=== PATIENT | female | born 1995 | race Hispanic/Latino ===

== ENCOUNTER 2017-01-21 14:27 | Day surgery (SDC) | payer OTHER ==
[2017-01-21] MEDS ORDERED: Lactated Ringer's 1,000 ML IV SCH ×2 (15:00)
[2017-01-21 15:12] VITALS: BMI 48.9
--- NOTE | 2017-01-21 15:33 | PDOC.LDHP ---
Labor and Delivery H&P Chief complaint: other (oligohydramnios by clinical US) Dating criteria: first trimester ultrasound (7 week 4 day US due to unsure LMP) Grav: 2 Para: 1 Current complications: oligohydramnios Abnormal US findings: Yes (ZACHARY 4cm) Past Medical History: PMHx- Obesity PSHx- LTCS x 1 for failed IOL Family Hx- none Current medications: pre- vitamins Previous surgical history: low tranverse CS Social history: none - Physical Exam Vital signs reviewed and normal: yes General: NAD, resting Heart: RRR Lungs: nonlabored breathing Abdomen: gravid Extremeties: no edema FHT: category 1 - OB Labs 1 hour GCT: negative GBS: negative - Assessment @ 37.2 by 7.4wk US presents for- 1) Oligohdyramnios- IV placement and bolus 2L IVF and push po fluids. no h/o LOF , discharge, VB. After IVF, will check repeat ZACHARY with BPP. NST currently showing active fetus with cat I strip and few ctx (not felt by pt). Will also check umbilical artery dopplers. If ZACHARY nml, reassuring status, will await IOL vs. RLTCS; however, if abnormal component, will consider IOL/RLTCS today/tomorrow. Pending Records from [facility] for IOB labs. 2) h/o x 1- undecided regarding delivery plan 3) h/o preE w/o severe features- declined asa ppx but normal BPs throughout . 4) obesity The plan was discussed with the attending, Dr. Sofia Sawant, who agrees with the above. - Plan Plan: observation in L&D <Shanon Gerber - Last Filed: 01/21/17 15:39> <Sofia Sawant - Last Filed: 01/22/17 13:18> Allergies/Adverse Reactions: Allergies Allergy/AdvReac Type Severity Reaction Status Date / Time No Known Allergies Allergy Verified 05/29/14 02:22 Attending Addendum - Attending Addendum I personally evaluated the patient and discussed the management with Dr. Gerber I agree with the History, Examination, Assessment and Plan documented above with any addition or exceptions noted below. Seda <Sofia Sawant - Last Filed: 01/22/17 13:18>
--- NOTE | 2017-01-21 20:55 | ULT ---
LIMITED OB ULTRASOUND AND BIOPHYSICAL PROFILE WELL ARTERIAL DOPPLER ULTRASOUND EVALUATION 01/21/17 Multiple longitudinal and transverse images of an intrauterine is obtained using a multihe rtz curvilinear transducer. Real time, color flow, and spectral waveform doppler analysis used to ev aluate the fetus. Images demonstrate a viable intrauterine with the fetus in cephalic presentation. The plac enta is anterior and grade II. Amniotic fluid index measures 10.6 cm. Cardiac activity measures 124 beats per minute. anatomi c evaluation demonstrates a four chamber heart, stomach, cord insertion, diaphragm and bladder. The rest of the anatomy is suboptimally visualized due to position. Umbilical arterial measurements are as follows: Three separate measurements were made. Measurement #1 measures 2.08, measurement #2 measures 2.30 and measurement #3 is 2.43 (systolic over diastolic). BIOPHYSICAL PROFILE: tone = 2 breathing = 2 movement = 2 Amniotic fluid volume = 2 Composite = 8 out of 8. IMPRESSION: Viable IUP. Biophysical profile measures 8 out of 8. POS: [facility]
== END 2017-01-21 19:25 | disposition home or self-care (01) ==
LOC: L&D/OP 14:27
PROVIDERS: ATTEND Student in an Organized Health Care Education/Training Program
DX: O41.03X0 Oligohydramnios, third trimester, not applicable or unspecified (principal); O99.213 Obesity complicating pregnancy, third trimester; E66.9 Obesity, unspecified; Z68.42 Body mass index [BMI] 45.0-49.9, adult; Z79.899 Other long term (current) drug therapy; Z3A.37 37 weeks gestation of pregnancy; Z98.891 History of uterine scar from previous surgery; Z87.59 Personal history of other complications of pregnancy, childbirth and the puerperium
CPT/HCPCS: 76815; 76819; 96360; 96361

== ENCOUNTER 2017-01-31 03:16 | Inpatient (IN) | payer MEDICAID, OTHER, SELFPAY ==
[2017-01-31 03:47] VITALS: BMI 48.2
[2017-01-31] MEDS ORDERED: Acetaminophen 500 MG TAB PO PRN (03:53)
[2017-01-31] MEDS ORDERED: Promethazine HCl 25 MG/ML VIAL IM PRN ×2 (03:53→06:00)
[2017-01-31] MEDS ORDERED: Lidocaine 1% (PF) 30 ML VIAL SC PRN (03:53)
[2017-01-31] MEDS ORDERED: LR / Pitocin 40 units/1000 ml 1,000 ML IV PRN (03:53)
[2017-01-31] MEDS ORDERED: Ondansetron HCl/PF 4 MG/2 ML Vial IVP PRN ×2 (03:53→06:00)
[2017-01-31] MEDS ORDERED: Ibuprofen 800 MG TAB PO PRN (03:53)
[2017-01-31] MEDS: Lactated Ringer's 1,000 ML IV SCH ×2 (04:00→16:09)
[2017-01-31 05:07] LABS: Hematocrit 41.2 % (36.0-47.0); Mean Platelet Volume 7.2 fL (7.4-10.4); Red Blood Cell (RBC) Count 5.26 mill/uL (4.20-5.40); White Blood Cell (WBC) Count 11.1 thou/uL (4.8-10.8)
[2017-01-31] MEDS ORDERED: Fentanyl 4 mcg/Marc 0.1% Cadd 100 ML ONE (05:08)
[2017-01-31] MEDS ORDERED: Lactated Ringer's 500 ML IV PRN (06:00)
[2017-01-31] MEDS ORDERED: Eucerin (Mineral Oil/Petrolatum,White) 30 gm Jar TOP PRN (06:00)
[2017-01-31] MEDS ORDERED: ePHEDrine/0.9% NaCl/PF SYRINGE 50 mg/10 ml SLOW IVP PRN (06:00)
[2017-01-31] MEDS ORDERED: Acetaminophen 325 MG TAB PO PRN (06:00)
[2017-01-31] MEDS ORDERED: Naloxone HCl 0.4 mg/ml Vial IVP PRN ×2 (06:00)
[2017-01-31] MEDS ORDERED: diphenhydrAMINE 50 MG/ML VIAL IVP PRN (06:00)
[2017-01-31] MEDS ORDERED: Fentanyl 4mcg/Marcaine 0.1% Cassette 100 ML EPIDURAL SCH (06:00)
[2017-01-31] MEDS ORDERED: Communication Order-Pharmacy FS SCH (06:00)
--- NOTE | 2017-01-31 07:13 | PDOC.LDPN ---
Labor & Delivery Progress Note - Subjective Subjective: comfortable, loss of fluid (Initially came in for SROM) - Objective Vital signs reviewed and normal: yes General: NAD, resting, breathing through contractions Uterine fundus: non tender Dilation: 4 Effacement: 75% Station: -2 FHT: category 2, early decelerations, variable decelerations, variability present (moderate) [place] contractions every: 2 Procedures: epidural placed Plan: continue plan of care -: Labor check due at 0830 <Milagros Hancock - Last Filed: 01/31/17 07:11> Attending Addendum - Attending Addendum I personally evaluated the patient and discussed the management with Dr. Gerber. I agree with the History, Examination, Assessment and Plan documented above with any addition or exceptions noted below. <Noah Courtney - Last Filed: 01/31/17 12:58>
[2017-01-31] MEDS ORDERED: FLU VACC QS2017-18 36 mo. & older 0.5 ML SYRINGE IM ONE (09:00)
[2017-01-31] MEDS ORDERED: Lidocaine 1% (PF) 30 ML VIAL ONE (11:39)
[2017-01-31] MEDS ORDERED: Misoprostol 200 MCG TAB ONE (11:53)
[2017-01-31] MEDS ORDERED: Acetaminophen 1,000 MG in Premix Bag 1 BAG IVPB SCH (12:15)
[2017-01-31] MEDS ORDERED: Misoprostol 200 MCG TAB VAG SCH (12:30)
[2017-01-31] MEDS ORDERED: Gentamicin 80 MG/2 ML VIAL IVPB SCH (12:30)
[2017-01-31 13:08] LABS: Hematocrit 32.2 % (36.0-47.0); Mean Platelet Volume 6.8 fL (7.4-10.4); Red Blood Cell (RBC) Count 4.04 mill/uL (4.20-5.40); White Blood Cell (WBC) Count 25.3 thou/uL (4.8-10.8)
[2017-01-31 13:13] LABS: Bilirubin Small (Negative); Blood, Urine Large (Negative); Glucose, Urine (Dipstick) Negative (Negative); Ketone, Urine Negative (Negative); Nitrite Negative (Negative); Protein, Urine (Dipstick) Trace mg/dL (Neg-Trace); Urobilinogen 0.2 mg/dL (0.2-1.0)
[2017-01-31 13:16] LABS: Bacteria/HPF None Seen HPF (None Seen); RBC/HPF GREATER THAN 50-TNTC HPF (0-3)
[2017-01-31 13:27] LABS: Hyaline Casts/LPF 0-3 HYALINE CAST LPF (0-3 Hyaline); Renal Epithelial None Seen HPF (0-3); Transitional Epithelial 0-3 HPF (0-3)
[2017-01-31] MEDS ORDERED: Ampicillin 2 GM, Syringe 5.2 ML in Sterile Water 14.8 ML SLOW IVP SCH ×2 (13:30→22:00)
[2017-01-31] MEDS ORDERED: Ketorolac Tromethamine 30 MG/ML VIAL IVP SCH (13:30)
[2017-01-31] MEDS ORDERED: ISOVUE-370 76%-LOCM 1 ML ONE (13:34)
[2017-01-31 13:39] LABS: Band 16 % (5-11); Hypochromia SLIGHT = 6-15 cells (100X) (0-5/hpf); Microcytosis SLIGHT = 6-15 cells (100X) (0-5/hpf); Neutrophil 70 % (42-75); Polychromasia SLIGHT = 2-3 cells (100X) (0-2/hpf)
[2017-01-31] MEDS: Gentamicin Sulfate 340 MG in Sodium Chloride 0.9% 100 ML IVPB SCH (14:24)
[2017-01-31] MEDS ORDERED: Preparation H Ointment 28 GM TUBE PR PRN (15:12)
[2017-01-31] MEDS ORDERED: Adacel (T-DAP) 0.5 ML VIAL IM ONE (15:12)
[2017-01-31] MEDS ORDERED: Benzocaine/Menthol 20-0.5% 60 ML CAN TOP PRN (15:12)
[2017-01-31] MEDS ORDERED: Bisacodyl 10 MG SUPP PR PRN (15:12)
[2017-01-31] MEDS ORDERED: Lanolin Ointment 7 GM TUBE TOP PRN (15:12)
[2017-01-31] MEDS ORDERED: diphenhydrAMINE 25 MG CAP PO PRN (15:12)
[2017-01-31] MEDS ORDERED: Milk Of Magnesia 30 ML UDCUP PO PRN (15:12)
[2017-01-31] MEDS ORDERED: Lactated Ringer's 1,000 ML IV SCH ×2 (15:15→19:23)
--- NOTE | 2017-01-31 15:24 | PDOC.OPDEL ---
OB Operative/Delivery Note Delivery Dr/Surgeon: Dr. Santi Ortiz & Dr. Gerber, with Dr. Powers Attending Pre-Delivery Diagnosis: active labor Procedure/Post Delivery Dx: vaginal delivery after CS Weeks gestation: 38 Anesthesia: epidural (and local for repair) - Findings A Sex: female Weight: 3.515 kg - 1 min: 9 - 5 min: 9 - Additional Findings/Plan Placenta delivered: spontaneous Repaired Obstetrical Laceration: 2nd degree (2nd degree perineal & 1st degree non-hemostatic left labial & right periurethral) Estimated blood loss: 500 Compilations/Other Findings: 800mcg rectal cytotec placed for PPH prophylaxis Post delivery plan: routine recovery <Shanon Gerber - Last Filed: 01/31/17 15:22> Operative Note - Operative Note Operative Note: Procedure in detail Pre-op Diagnosis: 1. Term intrauterine in labor 2. prior x 1 for arrest of dilation 3. obesity 4. desire for TOLAC 5. preE in prior at 39 wk Post-op Diagnosis: 1. Term intrauterine , delivered 2. successful 3. prior x 1 for arrest of dilation 4. obesity 5. preE in prior at 39 wk Indications: A 21 y/o female presents in latent labor at 3/80/-2 after spontaneous rupture of membranes at approximately 2:30am the morning of arrival. Delivery Note: This is a 21 yo F , now @ 38wks 5 days who delivered a viable female infant at 10:39 am on 01/31/2017. Following an uneventful antepartum course, a vigorous female was delivered over a lacerated perineum in the occipitoanterior position. Anterior Shoulder and then remainder of the body delivered. Loose nuchal cord x 1. The head was held down and mouth and nares were bulb suctioned. Cord clamped and cut and cord blood collected. Placenta delivered intact with a 3 vessel cord noted and sent to pathology given maternal temperature of 102.3F upon delivery. Fundal massage was performed and the fundus was firm. The cervix and vagina were inspected and found to have multiple lacerations including a 2nd degree perineal laceration, repaired with 2-0 vicryl suture on a [address]-1 needle in the usual fashion with good approximation and hemostasis, as well as a non-hemostatic 1st degree laceration at the right periurethral location and a macerated 1st degree left vaginal side wall non-hemostatic laceration both repaired with 2-0 vicryl suture on an SH needle. 5ml of local anesthetic was injected at site of perineal repair. Infant went to nursery in good condition for routine care with blood culture and CBC, as well as prophylactic ampicillin and gentamicin given maternal chorioamnionitis. Apgars were 9&9 at 1 & 5 minutes, respectively. Patient tolerated delivery well and went to after routine recovery/care. The attending, Dr. Powers, was present throughout the delivery. <Shanon Gerber - Last Filed: 01/31/17 15:22> Attending Addendum - Attending Addendum I personally evaluated the patient, was present for and supervised the entire procedure by Drs. Hancock/Buzz I agree with the description of procedure as documented above without any addition or exceptions. <Nimesh Powers - Last Filed: 02/08/17 16:58>
[2017-01-31] MEDS: Ferrous Sulfate 325 MG TAB PO SCH (16:35)
[2017-01-31 17:29] LABS: #Lymphocytes 3.3 thou/uL (1.20-3.40); #Monocytes 0.8 thou/uL (0.11-0.59); #Neutrophils 13.4 thou/uL (1.40-6.50); %Basophils 0.1 % (0.0-1.0); %Eosinophils 0.1 % (0.0-10.0); %Lymphocytes 18.9 % (21.0-51.0); %Monocytes 4.6 % (0.0-10.0); Mean Platelet Volume 6.7 fL (7.4-10.4); White Blood Cell (WBC) Count 17.6 thou/uL (4.8-10.8)
[2017-01-31] MEDS ORDERED: Sodium Chloride 0.9% 10 ML ONE (17:41)
[2017-01-31 17:46] LABS: Lactic Acid - Sepsis 1.4 mmol/L (0.5-2.2)
[2017-01-31 17:51] LABS: ALT (SGPT) Less than 7 U/L (8-55); AST (SGOT) 16 U/L (5-34); Alkaline Phosphatase 116 U/L (40-150); Anion Gap 13 mmol/L (10-20); BUN (Urea Nitrogen) 10 mg/dL (7.0-18.7); Bilirubin, Total 0.5 mg/dL (0.2-1.2); Calc. Creatinine Clearance 237 mL/min (70-130); Calcium 8.1 mg/dL (7.8-10.44); Carbon Dioxide 19 mmol/L (22-29); Chloride 104 mmol/L (98-107); Estimated GFR-MDRD Greater than 90; Globulin 2.6 g/dL (2.4-3.5); Protein, Total 4.9 g/dL (6.0-8.3)
[2017-01-31] MEDS ORDERED: Ampicillin 2 GM in Sodium Chloride 0.9% 100 ML IVPB SCH (18:00)
[2017-01-31] MEDS: Morphine 10 MG/ML VIAL SLOW IVP PRN ×2 (18:20→23:02)
--- NOTE | 2017-01-31 19:34 | PDOC.PP ---
Post Progress Note Post Day #: 0 Subjective: pt c/o lower abd pain, especially LLQ. minimal bleeding. afebrile after ofirmev IV. on abx currently. PO intake tolerated: no Ambulation: no Vital Signs (12 hours) Temp Pulse Resp BP Pulse Ox 01/31/17 18:20 98.2 F 113 H 18 112/62 98 01/31/17 17:10 98.9 F 104 H 20 107/60 01/31/17 16:23 98.6 F 104 H 18 01/31/17 16:22 104 H 18 111/60 01/31/17 14:45 98.1 F 119 H 18 105/56 L 97 01/31/17 08:00 98.4 F 90 18 Weight Weight 101.151 kg - Physical Examination Deviation from normal: no distress at rest Deviation from normal: mildly tachycardic to 105 Respiratory: non-labored breathing Deviation from normal: fundus exquisitly ttp with mild diffuse abd pain, mild guarding, no rebound Fundus firm & at: firm fundus, appropriate lochia Psychiatric: A&Ox3, normal affect Result Diagrams: 01/31/17 17:19 01/31/17 17:19 Additional Labs: Post Labs Blood Type O POSITIVE 01/31/17 04:30 Hep Bs Antigen Non-Reactive S/CO (NonReactive) 01/31/17 04:30 (1) Chorioamnionitis, delivered, current hospitalization Code(s): O41.1290 - CHORIOAMNIONITIS, UNSP TRIMESTER, NOT APPLICABLE OR UNSP Status: Acute (2) Vaginal delivery Code(s): O80 - ENCOUNTER FOR FULL-TERM UNCOMPLICATED DELIVERY Status: Acute (3) Anemia complicating Code(s): O99.019 - ANEMIA COMPLICATING , UNSPECIFIED TRIMESTER Status : Acute (4) Maternal fever during labor, antepartum Code(s): O75.2 - PYREXIA DURING LABOR, NOT ELSEWHERE CLASSIFIED Status: Acute - Assessment/Plan CT of abd shows increase in merry-uterine heterogenous fluid but no free air or clear free fluid, no clear uterine rupture. 1) Acute abdominal pain, - given pt's status, concern for small uterine rupture. H&H has dropped, but appears appropriate after EBL at delivery. No excessive uterine bleeding. Mildly tachycardic, but has chorio. BP nml. Additionally, pt dx'ed with chorioamnionitis at delivery and concern for endometritis. Continue IVF, Amp & Gent for abx and pain control. Will order Abd US to re-eval for free fluid/ hematoma. Appears clinically stable at this time. Consult placed for OB laborist offender job retention specialist, Dr. Hernandez, who has assessed the pt as well.
--- NOTE | 2017-01-31 19:37 | CT ---
ABDOMEN AND PELVIC CT WITH CONTRAST 01/31/17 INDICATION: Acute abdominal pain with history of peripartum state. FINDINGS: There is marked enlargement and heterogeneity of the uterus with a prominent degree of surrounding f luid which is greater than typical for simple fluid. There is an indwelling Gurrola catheter and the u nopacified urinary bladder is compressed by the enlarged uterus. There is prominent volume of the lo w density endometrium. No hydronephrosis involving the kidneys. Adrenal glands are unremarkable. The re is no peripancreatic inflammation. Mild perisplenic and perihepatic free fluid is seen. No dissem inated free air. Mild volume loss is seen at the lung bases. Osseous structures are intact. IMPRESSION: Marked enlargement and heterogeneity of the uterus with surrounding free fluid greater than typical density for simple fluid. Findings may relate, at least in part to the peripartum state although com ponent of underlying inflammatory process and/or hemorrhagic process cannot be excluded, particularl y in light of the moderate volume of surrounding free fluid. Recommend clinical correlation in this regard and close clinical assessment. As necessary, imaging followup may also be obtained to evaluat e progression of findings. Code T POS: [facility]
[2017-01-31] MEDS ORDERED: Ketorolac Tromethamine 30 MG/ML VIAL IVP PRN (20:06)
[2017-01-31] MEDS: Sodium Chloride 0.9% 1,000 ML IV SCH (20:09)
[2017-01-31 20:57] LABS: Hematocrit 24.6 % (36.0-47.0)
[2017-01-31] MEDS ORDERED: Docusate Calcium (SURFAK) 240 MG CAP PO SCH (21:00)
--- NOTE | 2017-01-31 21:19 | ULT ---
LIMITED ABDOMINAL ULTRASOUND 01/31/17 HISTORY: Evaluate for free fluid, recent vaginal delivery. TECHNIQUE: Multiplanar waite scale sonographic imaging of the abdomen/pelvis obtained to evaluate for free fluid . FINDINGS: The uterus is visualized, poorly assessed on ultrasound. The uterus is markedly heterogeneous and en larged, consistent with the patient's history of recent delivery. Evaluation for free fluid is much better performed via CT, which was also performed on 01/31/17. CT exam demonstrates free fluid in the bilateral hemipelves and pubic symphysis. The ultrasound demonstrates free fluid in the left lower quadrant. Please refer to the CT examination for further assessment. IMPRESSION: Free fluid noted in the left lower quadrant, underestimated on ultrasound. Heterogeneity of the uter us, not well assessed on this exam. POS: [facility]
--- NOTE | 2017-01-31 21:19 | PRG ---
DATE OF SERVICE: 01/31/2017 FOLLOWUP ABDOMINAL ULTRASOUND In brief, I have just discussed the ultrasound with Chelsey, the product technician. There is no gross evidence of hematoma and the scar area looks to be intact. There is a small amount of peritoneal fluid, but nothing that looks like an organized hematoma or free fluid in the abdomen. Because of this ultrasound, which is reassuring, we will simply continue to follow.
[2017-01-31] MEDS ORDERED: Ibuprofen 100 MG/5 ML UDCUP PO PRN (22:49)
[2017-01-31] MEDS: Ampicillin 2 GM, Syringe 5.2 ML in Sterile Water 14.8 ML SLOW IVP SCH (23:46)
--- NOTE | 2017-01-31 23:54 | CON ---
DATE OF CONSULTATION: 01/31/2017 The patient was examined at 1915 hours, it is now 1938 hours. LOCATION: in room #333. REQUESTING PHYSICIAN: [facility]/Dr. Shanon Gerber. REASON FOR CONSULTATION: Assessment of uterine integrity after successful . HISTORY OF PRESENT ILLNESS: In brief, I was asked by Dr. Shanon Gerber to evaluate this patient at t he bedside to assess whether her abdomen met surgical criteria. It is important to note that this p atient is a G2, P1, status post , who had a successful at around 10:30 this morning. After delivery, she was also diagnosed with metritis with a temperature of 102 and she is currently receiving IV fluids and antibiotics. Due to the patient's increased abdominal discomfort more than what was deemed normal, I was asked to evaluate. We did obtain a CT scan prior to my ass essment of the patient and the CT scan showed evidence of septic thrombophlebitis, big loculated flu id collection, or overt uterine abnormality. There was some concern about \\\\"free fluid\\\\" noted ar ound the uterus, but this was not otherwise specified. I did review the images myself along with Dr Clyde Gerber. I evaluated the patient at the bedside. PHYSICAL EXAMINATION: VITAL SIGNS: Blood pressure is 120s/70s, pulse is in the 100s-110s. GENERAL: She is in no acute distress. ABDOMEN: Soft with no rebound and no guarding. She did have some pain on deep palpation on the rig ht, but this was not felt to be reflective of a surgical abdomen by me. There was no overt vaginal bleeding. NEUROLOGIC: The patient was alert and oriented and was able to communicate freely. LABORATORY DATA: Her hematocrit value was 27 at last check. ASSESSMENT AND PLAN: 1. This is a patient status post successful vaginal after , now with metritis being t reated with antibiotics with a request from [employer]PERATOR to assess for uterine integrity. Patient has ove rt uterine rupture now and her slight tachycardia could be from her febrile process. I have asked f or a transabdominal ultrasound to make sure that there is no evidence of loculated fluid collection that may help add more clarity to the CT images. Her abdomen is nonsurgical at this time. I have a lso asked to keep her n.p.o. for now. 2. I have asked to place a Gurrola for now. 3. I have asked to get serial H\\T\\H's for now. 4. We will type and cross as well. 5. For now, we will continue to follow as there is no overt evidence of hemodynamic compromise or o vert evidence of rupture at this time.
[2017-02-01 01:42] LABS: Hematocrit 22.8 % (36.0-47.0)
--- NOTE | 2017-02-01 01:59 | PDOC.EVN ---
Event Note - Event Note Event Note: Pt seen and examined at bedside. Denies lightheadedness, dizziness, sob, cp. Reports passing flatus w/ mild relief of symptoms; however, is tachycardic and last bp down form prior. Repeat H/H w/ platelts showed Hgb of 7.5. Abdominal exam remains unchanged from baseline exam, no rebound guarding or rigidity. We will transfuse 1 U PRBCs and repeat an h/h at 1000. Continue IVF.
[2017-02-01] MEDS: Hydrocodone-Acetamin 15 ML UDCUP PO PRN ×2 (02:57→09:35)
[2017-02-01] MEDS: Sodium Chloride 0.9% 1,000 ML IV SCH ×4 (04:04→22:24)
[2017-02-01] MEDS: Ampicillin 2 GM, Syringe 5.2 ML in Sterile Water 14.8 ML SLOW IVP SCH ×3 (06:03→18:38)
--- NOTE | 2017-02-01 08:03 | PDOC.EVN ---
Event Note - Event Note Event Note: Pt re-evaluated this morning. States she was at a 10/10 regarding pain and discomfort upon eval yesterday afternoon, but feels like a 5/10 this morning. Denies feeling fatigued, weak or malaise. Vital Signs Temp 98.4 F 02/01/17 06:00 Pulse 95 02/01/17 06:00 Resp 20 02/01/17 06:00 BP 121/75 02/01/17 06:00 Pulse Ox 97 02/01/17 06:00 Intake & Output 01/31/17 02/01/17 02/01/17 18:59 06:59 18:59 Intake Total 550 2005 Output Total 150 550 Balance 400 1456 Intake: Intake, IV Amount 500 1456 Oral 50 200 Blood Product 350 Packed Cells - 350 Leukoreduced Unit [id number] Output: Output, Gurrola 150 550 Other: Voiding Method Indwelling Catheter Indwelling Catheter Hemoglobin has trended downward 10.1-->8.8-->8.1-->7.5. Given persistent tachycardia in the 100-110 range and facial pallor, pt transfused 1 unit pRBC. Now states pain well controlled and feeling much less weak. Pending repeat H&H at 10:00 (4 hrs after transfusion complete). Abd soft- uterine fundus TTP but minimal diffuse abd pain. No guarding or rebound/ no acute abdomen. Etiology unlikely to be uterine rupture given time course and hemodynamic stability. Most likely, anemia due to blood loss during + lac repair and fluid shifts in immediate post- period. Additionally, pain now localized to uterus which is more consistent with current state of chorio/ endometritis. Will continue to monitor closely. Amador Gerber DO ([email or web address]) <Shanon Gerber - Last Filed: 02/01/17 07:58> Attending Addendum - Attending Addendum I personally evaluated the patient and discussed the management with Drs. Gerber and Santi. I agree with the History, Examination, Assessment and Plan documented above with any addition or exceptions noted below. Gerda still has lower abdomen and vaginal pain, but notes it is less than last night and only worsens with nursing, which is to be expected. Vitals are normal this morning. No CP, SOB, dizziness or fever noted. We have adjusted her scheduled pain meds to maximize non-opioid therapy, have keep po norco for breakthrough pain, and and added senna and docusate to avoid constipation. We will have her urinary catheter removed. CBC for tomorrow morning unless new problems arise before then. Lochia is normal. <Noah Courtney - Last Filed: 02/01/17 10:58>
[2017-02-01] MEDS: Prenatal Vitamin 1 TAB PO SCH (09:37)
[2017-02-01] MEDS: Ferrous Sulfate 325 MG TAB PO SCH ×2 (09:44→17:44)
[2017-02-01 10:14] LABS: Hematocrit 24.4 % (36.0-47.0)
[2017-02-01] MEDS: Docusate Sodium 100 MG/10 ML UDCUP PO SCH ×2 (11:18→22:21)
[2017-02-01] MEDS: Acetaminophen 500 MG TAB PO SCH ×2 (11:23→17:44)
[2017-02-01] MEDS: Ketorolac Tromethamine 30 MG/ML VIAL IVP SCH ×2 (11:23→18:04)
[2017-02-01] MEDS: Gentamicin Sulfate 340 MG in Sodium Chloride 0.9% 100 ML IVPB SCH (14:21)
[2017-02-01] MEDS: Senokot S 8.6-50 MG TAB PO SCH (22:22)
[2017-02-02] MEDS: Ampicillin 2 GM, Syringe 5.2 ML in Sterile Water 14.8 ML SLOW IVP SCH ×3 (00:25→13:56)
[2017-02-02] MEDS: Acetaminophen 500 MG TAB PO SCH ×3 (00:25→13:58)
[2017-02-02] MEDS: Ketorolac Tromethamine 30 MG/ML VIAL IVP SCH ×2 (02:46→13:55)
--- NOTE | 2017-02-02 07:03 | PDOC.PP ---
Post Progress Note Post Day #: 2 Vital Signs (12 hours) Temp Pulse Resp BP 02/02/17 00:30 98.1 F 106 H 20 120/77 02/01/17 20:00 98.0 F 98 20 131/85 Weight Weight 101.151 kg Result Diagrams: 02/01/17 09:58 01/31/17 17:19 Additional Labs: Post Labs Blood Type O POSITIVE 01/31/17 04:30 Hep Bs Antigen Non-Reactive S/CO (NonReactive) 01/31/17 04:30 (1) Endometritis Code(s): N71.9 - INFLAMMATORY DISEASE OF UTERUS, UNSPECIFIED Status: Acute (2) , delivered Code(s): O34.219 - MATERNAL CARE FOR UNSP TYPE SCAR FROM PREVIOUS DEL Status: Acute (3) Chorioamnionitis, delivered, current hospitalization Code(s): O41.1290 - CHORIOAMNIONITIS, UNSP TRIMESTER, NOT APPLICABLE OR UNSP Status: Acute (4) Maternal fever during labor, antepartum Code(s): O75.2 - PYREXIA DURING LABOR, NOT ELSEWHERE CLASSIFIED Status: Acute (5) Obesity Code(s): E66.9 - OBESITY, UNSPECIFIED Status: Acute - Assessment/Plan 21 yo f -->2 s/p successful found to have suspected chorioamionitis and currently with suspected endometritis, on amp and gent, with a CT showing free fluid, without evidence of uterine rupture, with an improving H/H, blood pressure wnl, mildy tachycardic (106), afebrile. CT of abd:shows increase in merry-uterine heterogenous fluid but no free air or clear free fluid, no clear uterine rupture. 1) Endometritis-Pt is afebrile, with a blood pressure wnl, mildy tachycardic, pain controlled with toradol TID, tylenol 500mg QID, norco prn. Minimal vaginal bleeding; uterus firm, tender and below the umbilicus. Pt has ambulated, and is tolerating a normal diet. Will continue to monitor. <Milagros Hancock - Last Filed: 02/02/17 06:55> Vital Signs (12 hours) Temp Pulse Resp BP 02/02/17 07:55 98.5 F 104 H 14 02/02/17 07:48 98.5 F 104 H 14 121/70 02/02/17 00:30 98.1 F 106 H 20 120/77 Weight Weight 101.151 kg Result Diagrams: 02/02/17 07:34 01/31/17 17:19 Additional Labs: Post Labs Blood Type O POSITIVE 01/31/17 04:30 Hep Bs Antigen Non-Reactive S/CO (NonReactive) 01/31/17 04:30 <Noah Courtney - Last Filed: 02/02/17 11:01> Attending Addendum - Attending Addendum I personally evaluated the patient and discussed the management with Dr. Hancock. I agree with the History, Examination, Assessment and Plan documented above with any addition or exceptions noted below. enrico has been afebrile for 48hoursw. Pain is not present with rest adn ambilation. Only with nursing related cramping and pressing on her uterus suprapubically. She feels ready to go home--eating drinking, ambulating, toileting without problem. I think her tachycardia is related to anemic state (hgb 7.9) which is stable. I expect that resolve over the next several weeks. Will d/c to home to complete a course of augmentin. <Noah Courtney - Last Filed: 02/02/17 11:01>
[2017-02-02] MEDS: Sodium Chloride 0.9% 1,000 ML IV SCH ×2 (07:31→13:55)
[2017-02-02 07:43] LABS: #Eosinphils 0.1 thou/uL (0.0-0.7); #Lymphocytes 2.3 thou/uL (1.20-3.40); #Monocytes 0.8 thou/uL (0.11-0.59); #Neutrophils 8.9 thou/uL (1.40-6.50); %Basophils 0.3 % (0.0-1.0); %Eosinophils 0.9 % (0.0-10.0); %Lymphocytes 19.2 % (21.0-51.0); %Monocytes 6.3 % (0.0-10.0); Mean Platelet Volume 5.9 fL (7.4-10.4); White Blood Cell (WBC) Count 12.1 thou/uL (4.8-10.8)
[2017-02-02] MEDS: Docusate Sodium 100 MG/10 ML UDCUP PO SCH (09:26)
[2017-02-02] MEDS: Prenatal Vitamin 1 TAB PO SCH (09:26)
[2017-02-02] MEDS: Ferrous Sulfate 325 MG TAB PO SCH (09:27)
[2017-02-02] MEDS: Senokot S 8.6-50 MG TAB PO SCH (09:28)
[2017-02-02 11:34] VITALS: BP 113/79; TEMP 97.5
== END 2017-02-02 14:10 | disposition home or self-care (01) | DRG 774 ==
LOC: L&D/OP 03:16 → L&D 04:08 → 3SW 15:05
PROVIDERS: ADMIT Family Medicine; ATTEND Family Medicine
PROC: 10E0XZZ Delivery of Products of Conception, External Approach (ICD-10-PCS; principal; 2017-01-31)
PROC: 0KQM0ZZ Repair Perineum Muscle, Open Approach (ICD-10-PCS; 2017-01-31)
PROC: 30243N1 Transfusion of Nonautologous Red Blood Cells into Central Vein, Percutaneous Approach (ICD-10-PCS; 2017-02-01)
DX: O70.1 Second degree perineal laceration during delivery (principal); O86.12 Endometritis following delivery; Z37.0 Single live birth; Z68.41 Body mass index [BMI] 40.0-44.9, adult; O41.1230 Chorioamnionitis, third trimester, not applicable or unspecified; N71.0 Acute inflammatory disease of uterus; E66.01 Morbid (severe) obesity due to excess calories; D62 Acute posthemorrhagic anemia; O99.214 Obesity complicating childbirth; Z3A.38 38 weeks gestation of pregnancy; O34.211 Maternal care for low transverse scar from previous cesarean delivery; O69.81X0 Labor and delivery complicated by cord around neck, without compression, not applicable or unspecified; O90.81 Anemia of the puerperium
CPT/HCPCS: 36415; 36430; 74177; 76705; 80053; 80170; 81003; 81015; 83605; 85014; 85018; 85025; 85027; 85049; 86780; 86850; 86900; 86901; 87040; 87070; 87086; 87205; 87340; 87389; 88307; A4216; J0131; J0290; J1580; J1885; J2001; J2270; J7050; P9016

== ENCOUNTER 2019-03-12 11:08 | Outpatient (CLI) | payer MEDICAID | END 2019-03-12 11:09 | disposition home or self-care (01) | LOC: DTY/OP 11:08 | PROVIDERS: ATTEND Family Medicine | DX: O24.419 Gestational diabetes mellitus in pregnancy, unspecified control (principal); Z68.42 Body mass index [BMI] 45.0-49.9, adult | CPT/HCPCS: 97802 ==

== ENCOUNTER 2019-03-18 18:00 | Inpatient (IN) | payer OTHER, SELFPAY ==
[2019-03-18 18:42] VITALS: BMI 51.8
[2019-03-18] MEDS ORDERED: Promethazine HCl 25 MG/ML VIAL IM PRN (18:46)
[2019-03-18] MEDS ORDERED: Ondansetron PF 4 MG/2 ML Vial IVP PRN (18:46)
[2019-03-18] MEDS ORDERED: Lidocaine 1% (PF) 30 ML VIAL SC PRN (18:46)
[2019-03-18] MEDS ORDERED: Ibuprofen 800 MG TAB PO PRN (18:46)
[2019-03-18] MEDS ORDERED: NS / Oxytocin 40 units/1000ml 1,000 ML IV PRN (18:46)
[2019-03-18] MEDS ORDERED: hydrALAZINE 20 MG/ML VIAL SLOW IVP PRN (18:46)
--- NOTE | 2019-03-18 18:52 | PDOC.FPROB ---
FMR OB H&P: HPI - History of Present Illness Chief Complaint: IOL Indentification: 23 y/o @ 39.0 WGA by 11.5 wk sono History of Present Illness: Patient presents for scheduled IOL. She reports intermittent ctx that are not very strong. Denies vaginal bleeding, d/c, LOF. Endorses movement. She reports her glucose has been well controlled, but does not have a log with her. Primary Care Physician: Dr. Boyle and Dr. Wan - [place] FMR OB H&P: Current - Care : 3 Para: 2001 Gestational age: 39w0d Due date: 03/25/19 Dating Criteria: 11.5 wk sono Course/Complications: Pt developed A1GDM that has been well controlled with diet - OB Labs Blood type: O RH: positive Antibody Screen: negative HIV: negative RPR: negative HepBsAg: negative Rubella: immune 1 hour gtt: 2h GTT - 100/215/107 A1c: 5.3 GBS: negative H&H: 10.5/31.9 FMR OB H&P: History - Past Medical History PMH: Obesity - OB History OB History: 1. Term arrest of dilation pLTCS - IOL for pre-eclampsia without severe features 2. 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 CLIPPER History: Denies h/o STI or abnormal paps - Surgical History Sx History: section x1 - Social History Social History: Denies tobacco, EtOH, or drug use - Family History Family History: Grandmother - DM FMR OB H&P: Medications - Current Home Medications: Medication Instructions Recorded Confirmed Type Vit 10/Iron/Folic/Dha 1 tablet PO DAILY 04/30/14 01/31/17 History [Vitafol-OB+DHA Combo Pack] Amoxicillin/Potassium Clav 1 tab PO Q12HR #8 tablet 02/02/17 Rx [Augmentin] Allergies/Adverse Reactions: Allergies Allergy/AdvReac Type Severity Reaction Status Date / Time No Known Allergies Allergy Verified 03/18/19 18:40 FMR OB H&P: ROS - Review of Systems General: denies: fever/chills, weight/appetite/sleep changes Eyes: denies: vision changes, double vision ENT: denies: nasal congestion, sore throat Cardiovascular: denies: chest pain, edema Respiratory: denies: cough, shortness of breath Gastrointestinal: denies: abdominal pain, nausea, vomiting Genitourinary (Female): denies: dysuria, hematuria, vaginal discharge, vaginal bleeding, contractions Musculoskeletal: denies: pain, swelling Neurologic: denies: numbness, weakness Integumentary: denies: itching, rash FMR OB H&P: Vital Signs - Maternal Vital signs: BP 131/78, HR 108, RR 16 - Heart Tones Baseline: 150 Variability: moderate Acceleration: present Deceleration: absent Category: category 1 [place] contractions every: q4h FMR OB H&P: Physical Exam - Physical Exam General: NAD, awake, alert and oriented HEENT: EOMI, MMM, grossly normal vision, grossly normal hearing Neck: supple, no LAD Heart: RRR, normal S1/S2, no murmurs/rubs/gallops, pulses present, no edema General: CTAB, no respiratory distress, good air movement, no rales/rhonchi, no wheezing Abdomen: soft, gravid, non-tender Musculoskeletal: normal gait and station, pulses present Neurological: no focal deficit Skin: good tugor, capillary refill <2 seconds Lymphatic: no unusual bruising or bleeding, no purpura Psychiatric: intact recent and remote memory, good judgement and insight - Pelvic Exam Vulva: normal hair distribution, no discharge SVE: 2 Membranes: intact Presentation: vertex confirmed on bedside sono FMR OB H&P: Results - Imaging Imaging: beside sono: vertex, fundal placenta FMR OB H&P: A/P - Problem List (1) Encounter for trial of labor Current Visit: Yes Status: Acute Code(s): [id number] - Comment: Admit pt to L&D for TOLAC induction -Consented pt for risks of TOLAC including uterine rupture, need for emergent -SVE: 05/25/2, cook balloon placed and inflated to 40mL/40mL, will go up to 60/ 60 after 15 minutes -GBS negative -Cervical checks q4h in latent labor and q2h when active -LR @ 125 -Continuous monitoring (2) H/O section Current Visit: Yes Status: Acute Code(s): Z98.891 - HISTORY OF UTERINE SCAR FROM PREVIOUS SURGERY Comment: Pt with prior for failure to progress in an IOL for pre-e without severe features -TOLAC induction (3) H/O successful vaginal after , currently Current Visit: Yes Status: Acute Code(s): O34.219 - MATERNAL CARE FOR UNSP TYPE SCAR FROM PREVIOUS DEL Comment: Pt has h/o successful here for TOLAC induction -Counseled on risks and benefits and consented for TOLAC (4) GDM (gestational diabetes mellitus), class A1 Current Visit: Yes Status: Acute Code(s): O24.410 - GESTATIONAL DIABETES MELLITUS IN , DIET CONTROLLED Comment: Will check glucose now and once in active labor (5) Obesity Current Visit: No Status: Acute Code(s): E66.9 - OBESITY, UNSPECIFIED Disposition: Admit to L&D for TOLAC IOL Discussion: Date/Time: 03/18/191849 This H&P was discussed with Dr. Sawant who agrees with the above documentation and plan. Signature: Shanon Poole MD, PGY-3 Addendum - Attending - Attending Attestation Date/Time: 03/18/191929 I personally evaluated the patient and discussed the management with Dr. Poole I agree with the History, Examination, Assessment and Plan documented above with any addition or exceptions noted below. Obese 23 yo female at 39.0 wks by 11.5 wk sono here for eIOL/tolac. R/B/A discussed at length with patient. Questions answered. Consents signed. Cephalic presentation. Difficult to perform [place]. Estimated 8.5 lbs. A1GDM. Obtain glucose. Trend q 4 hours if greater than or equal to 120. Trend q 1 to 2 hours during active labor. Goal of [address] or less[address] Plan to place Cooks balloon. Hx of successful . Follow closely. Repeat exam in 2 to 4 hours. ABrayMD
[2019-03-18 19:17] LABS: Hemoglobin 11.5 g/dL (12.0-16.0); Mean Corpuscular HGB CONC 33.2 g/dL (32.0-36.0); Mean Corpuscular Volume 75.2 fL (78.0-98.0); Mean Platelet Volume 7.7 fL (7.4-10.4); Platelet Count 190 thou/uL (130-400); RBC Distribution Width 13.6 % (11.5-14.5); Red Blood Cell (RBC) Count 4.61 mill/uL (4.20-5.40); White Blood Cell (WBC) Count 8.9 thou/uL (4.8-10.8)
[2019-03-18 19:51] LABS: Glucose 98 mg/dL (70-105)
[2019-03-18 20:00] LABS: Syphilis Antibody Nonreactive (Nonreactive); Syphilis Antibody Index 0.04 S/CO (<1.00 Non-Reactive)
[2019-03-18 22:27] LABS: HBSAg Index 0.19 S/CO (0-0.99); Hep B Surf Ag Non-Reactive S/CO (NonReactive)
--- NOTE | 2019-03-18 23:45 | PDOC.LDPN ---
Labor & Delivery Progress Note - Subjective Subjective: painful contractions - Objective Abnormal vital signs: BP 150/90, 143/88 General: resting Uterine fundus: non tender SVE: 3 cm with balloon in place FHT: category 1, variability present [place] contractions every: 3-5 min - Assessment (1) Encounter for trial of labor Code(s): [id number] - Current Visit: Yes Status: Acute Comment: SVE: 2/25/-2 , cook balloon placed and inflated to 60/60, now repeat cervical exam dilation 3. -Cervical checks q4h in latent labor and q2h when active -Continuous monitoring (2) GDM (gestational diabetes mellitus), class A1 Code(s): O24.410 - GESTATIONAL DIABETES MELLITUS IN , DIET CONTROLLED Current Visit: Yes Status: Acute Comment: Initial glucose 98, will repeat once in active labor (3) Elevated blood-pressure reading without diagnosis of hypertension Code(s): R03.0 - ELEVATED BLOOD-PRESSURE READING, W/O DIAGNOSIS OF HTN Current Visit: Yes Status: Acute Comment: Mild range BP's and pt asymptomatic -Will add on urine prot: cr ratio and CMP -Monitor BP's, if severe range then will start magnesium Plan: continue plan of care Addendum - Attending - Attending Attestation Date/Time: 03/18/192231 I personally evaluated the patient and discussed the management with Dr. Poole I agree with the History, Examination, Assessment and Plan documented above with any addition or exceptions noted below. Balloon in place. Minimal pain but tolerating well. BP now elevated. Workup pending. Asymptomatic. Trend and watch closely. Glucose less than 100. Continue to monitor, especially in active labor. GBS negative. Cephalic. Difficult [place] but possible 8.5 lb . Repeat exam in 2 to 4 hours. Seda
[2019-03-19 00:06] LABS: ALT (SGPT) Less than 7 U/L (8-55); AST (SGOT) 14 U/L (5-34); Albumin 3.4 g/dL (3.5-5.0); Alkaline Phosphatase 170 U/L (40-110); Anion Gap 14 mmol/L (10-20); BUN (Urea Nitrogen) 9 mg/dL (7.0-18.7); Bilirubin, Total 0.2 mg/dL (0.2-1.2); Calc. Creatinine Clearance 268 mL/min (70-130); Calcium 9.3 mg/dL (7.8-10.44); Carbon Dioxide 22 mmol/L (22-29); Chloride 105 mmol/L (98-107); Estimated GFR-MDRD Greater than 90; Globulin 3.1 g/dL (2.4-3.5); Glucose 100 mg/dL (70-105); Protein, Total 6.5 g/dL (6.0-8.3); Sodium 137 mmol/L (136-145)
[2019-03-19 00:31] LABS: Creatinine, Urine 62.51 mg/dL (47-110)
--- NOTE | 2019-03-19 03:58 | PDOC.LDPN ---
Labor & Delivery Progress Note - Subjective Subjective: comfortable - Objective Vital signs reviewed and normal: yes General: NAD, resting SVE: 5/-3 @ 0350, balloon came out FHT: category 1, variability present [place] contractions every: 2-5 min - Assessment (1) Encounter for trial of labor Code(s): [id number] - Current Visit: Yes Status: Acute Comment: SVE: 75/-3 , balloon out -Will start pitocin -Cervical checks q4h in latent labor and q2h when active -Continuous monitoring (2) GDM (gestational diabetes mellitus), class A1 Code(s): O24.410 - GESTATIONAL DIABETES MELLITUS IN , DIET CONTROLLED Current Visit: Yes Status: Acute Comment: Initial glucose 98, will repeat once in active labor (3) Elevated blood-pressure reading without diagnosis of hypertension Code(s): R03.0 - ELEVATED BLOOD-PRESSURE READING, W/O DIAGNOSIS OF HTN Current Visit: Yes Status: Acute Comment: Mild range BP's and pt asymptomatic, have resolved Labwork normal -Monitor BP's closely Addendum - Attending - Attending Attestation Date/Time: 03/19/19 0616 I personally evaluated the patient and discussed the management with Dr. Poole I agree with the History, Examination, Assessment and Plan documented above with any addition or exceptions noted below. s/p cooks balloon. Now 5 cm. Start pit per protocol as indicated. Mild range BP. Labs without evidence of preE. Asymptomatic. Likely gHTN. Continue to monitor and trend. Treat as indicated. Glucose at goal. Keep 100 or less. Repeat exam in 2 to 4 hours or prn. Cat 1 tracing. Would like epidural for pain control when requested. Seda
[2019-03-19] MEDS ORDERED: NS w/ Oxytocin 10 units 500 ML IV SCH (04:00)
[2019-03-19] MEDS ORDERED: Fentanyl 4 mcg/Bup 0.1% Cadd 100 ML ONE ×2 (04:24→11:54)
[2019-03-19] MEDS: Lactated Ringer's 1,000 ML IV SCH ×3 (04:48→11:32)
[2019-03-19] MEDS ORDERED: Ondansetron PF 4 MG/2 ML Vial IVP PRN ×2 (04:56→16:24)
[2019-03-19] MEDS ORDERED: Lactated Ringer's 500 ML IV PRN (04:56)
[2019-03-19] MEDS ORDERED: diphenhydrAMINE 50 MG/ML VIAL IVP PRN (04:56)
[2019-03-19] MEDS ORDERED: Promethazine HCl 25 MG/ML VIAL IM PRN (04:56)
[2019-03-19] MEDS ORDERED: ePHEDrine/0.9% NaCl/PF SYRINGE 50 mg/10 ml SLOW IVP PRN (04:56)
[2019-03-19] MEDS ORDERED: Acetaminophen 325 MG TAB PO PRN ×2 (04:56→16:24)
[2019-03-19] MEDS ORDERED: Naloxone HCl 0.4 mg/ml Vial IVP PRN ×2 (04:56)
[2019-03-19] MEDS ORDERED: Communication Order-Pharmacy FS SCH (05:00)
[2019-03-19] MEDS ORDERED: Fentanyl 4 mcg/Bupivacaine 0.1% Cassette 100 ML EPIDURAL SCH (05:00)
--- NOTE | 2019-03-19 08:47 | PDOC.LDPN ---
Labor & Delivery Progress Note - Subjective Subjective: comfortable, no concerns - Objective Vital signs reviewed and normal: yes General: NAD, resting Uterine fundus: non tender Dilation: 6 Effacement: 50% Station: -3 FHT: category 1 [place] contractions every: unable to detect contractions well on her side at this time Resuscitative measures: maternal IV fluids, maternal position change - Assessment (1) Encounter for trial of labor Code(s): [id number] - Current Visit: Yes Status: Acute Comment: (2) GDM (gestational diabetes mellitus), class A1 Code(s): O24.410 - GESTATIONAL DIABETES MELLITUS IN , DIET CONTROLLED Current Visit: Yes Status: Acute (3) H/O section Code(s): Z98.891 - HISTORY OF UTERINE SCAR FROM PREVIOUS SURGERY Current Visit : Yes Status: Acute (4) H/O successful vaginal after , currently Code(s): O34.219 - MATERNAL CARE FOR UNSP TYPE SCAR FROM PREVIOUS DEL Current Visit: Yes Status: Acute Plan: pitocin for augmentation -: Term in active labor: -Pitocin started around 0630 & cervical check unchanged from last check 2 hours ago. Unable to rupture as head in not well engage and cervix is still very high. Unable to assess if contractions are adequate at this time but will change positions to try to better detect. -Will increase pitocin to 6 & recheck in 2 hours. -Continuous monitoring. A1GDM - Initial glucose 9 & repeat at last check 91. - Will check again in 4-6 hours if not yet delivered by then. Elevated BP w/o diagnosis of HTN or G-HTN: Asymptomatic, have resolved. Labwork normal. Continue to monitor BP's closely. h/o C/S h/o successful TOLAC Addendum - Attending - Attending Attestation Date/Time: 03/19/19 4804 I personally evaluated the patient and discussed the management with Dr. Ramirez. I agree with the History, Examination, Assessment and Plan documented above with any addition or exceptions noted below.
--- NOTE | 2019-03-19 11:33 | PDOC.LDPN ---
Labor & Delivery Progress Note - Subjective Subjective: painful contractions - Objective Abnormal vital signs: BP 147/69 at 11:30 General: NAD, breathing through contractions Uterine fundus: palpable contractions Dilation: 7 Effacement: 50% Station: -1 FHT: category 2, variable decelerations [place] contractions every: 1-3 minutes prior to IUPC AROM: clear fluid IUPC placed: yes Resuscitative measures: maternal IV fluids, maternal position change - Assessment (1) Encounter for trial of labor Code(s): [id number] - Current Visit: Yes Status: Acute Comment: (2) GDM (gestational diabetes mellitus), class A1 Code(s): O24.410 - GESTATIONAL DIABETES MELLITUS IN , DIET CONTROLLED Current Visit: Yes Status: Acute (3) H/O section Code(s): Z98.891 - HISTORY OF UTERINE SCAR FROM PREVIOUS SURGERY Current Visit : Yes Status: Acute (4) H/O successful vaginal after , currently Code(s): O34.219 - MATERNAL CARE FOR UNSP TYPE SCAR FROM PREVIOUS DEL Current Visit: Yes Status: Acute Plan: pitocin for augmentation -: Term in active labor: -Pitocin started around 0630 & cervical check @ 11:15 7/50-1 w/ AROM of clear fluid. Attempted IUPC placement but may need to replace as difficult to detect contractions on monitor after placed. Will replace PRN after trouble shooting. -Will titrate pitocin as tolerated & recheck in 2 hours. -Continuous monitoring. A1GDM - Initial glucose 9 & repeat at last check 91. - Will check again in 2-4 hours if not yet delivered by then. Elevated BP w/o diagnosis of HTN or G-HTN: Asymptomatic, only 1 elevated BP since last check at 147/69 when mother was neing repositioned. Labwork normal. Continue to monitor BP's closely. h/o C/S - Aware, but is also s/p successful TOLAC. h/o successful TOLAC - Aware.
--- NOTE | 2019-03-19 13:20 | PDOC.LDPN ---
Labor & Delivery Progress Note - Subjective Subjective: comfortable - Objective Vital signs reviewed and normal: yes General: NAD - Assessment (1) GDM (gestational diabetes mellitus), class A1 Code(s): O24.410 - GESTATIONAL DIABETES MELLITUS IN , DIET CONTROLLED Status: Acute (2) H/O section Code(s): Z98.891 - HISTORY OF UTERINE SCAR FROM PREVIOUS SURGERY Status: Acute (3) H/O successful vaginal after , currently Code(s): O34.219 - MATERNAL CARE FOR UNSP TYPE SCAR FROM PREVIOUS DEL Status: Acute -: Term in active labor: - 0630 650/-3 - 0830 650/-3 - 1115 7/50/-1 - 1315 8/0 -A1GDM Elevated BP w/o diagnosis of HTN or G-HTN: - Asymptomatic, has had 2 mild range pressures during the day, developed swelling in legs - will check pre-e labs and monitor closely - will hold off on magnesium for now 2/2 no sev range criteria h/o C/S - Aware, but is also s/p successful TOLAC. h/o successful TOLAC - Aware. Addendum - Attending - Attending Attestation Date/Time: 03/19/19 1331 I personally evaluated the patient and discussed the management with Dr. Ramirez. I agree with the History, Examination, Assessment and Plan documented above with any addition or exceptions noted below.
--- NOTE | 2019-03-19 14:25 | PDOC.OPDEL ---
OB Operative/Delivery Note Delivery Dr/Surgeon: Savage Boyle Frakes Pre-Delivery Diagnosis: medically indicated induction Procedure/Post Delivery Dx: spontaneous vaginal delivery Weeks gestation: 39 (39.1) Anesthesia: epidural - Findings A Sex: male - 1 min: 8 - 5 min: 9 - Additional Findings/Plan Placenta delivered: spontaneous Repaired Obstetrical Laceration: none Compilations/Other Findings: This is 23yo F [id number] @ 39.1wks who delivered a viable M infant at on 03/19/19. Following an antepartum course complicated by morbid obesity, A1 GDM, a vigorous M was delivered over an intact perineum in the occipitoanterior position. Anterior Shoulder and then remainder of the body delivered. No nuchal cord. The head was held down and mouth and nares were bulb suctioned. Cord clamped after delayed cord clamping and cut and cord blood collected. Placenta delivered intact in the [place] presentation with a 3 vessel cord noted. Fundal massage was performed and the fundus was firm. The cervix and vagina were inspected and found to be free of lacerations. went to nursery in good condition for routine care. Apgars were 8/9 at 1 & 5 minutes, respectively. Patient tolerated delivery well and went to after routine recovery/care. Post delivery plan: routine recovery
[2019-03-19 15:42] LABS: Creatinine, Urine 93.84 mg/dL (47-110)
[2019-03-19 16:17] LABS: ALT (SGPT) Less than 7 U/L (8-55); AST (SGOT) 17 U/L (5-34); Albumin 2.7 g/dL (3.5-5.0); Alkaline Phosphatase 147 U/L (40-110); Anion Gap 13 mmol/L (10-20); BUN (Urea Nitrogen) 7 mg/dL (7.0-18.7); Bilirubin, Total 0.4 mg/dL (0.2-1.2); Calc. Creatinine Clearance 278 mL/min (70-130); Calcium 8.3 mg/dL (7.8-10.44); Carbon Dioxide 17 mmol/L (22-29); Chloride 105 mmol/L (98-107); Estimated GFR-MDRD Greater than 90; Globulin 3.2 g/dL (2.4-3.5); Glucose 65 mg/dL (70-105); Potassium 4.3 mmol/L (3.5-5.1); Protein, Total 5.9 g/dL (6.0-8.3); Sodium 131 mmol/L (136-145)
[2019-03-19] MEDS ORDERED: hydrALAZINE 20 MG/ML VIAL SLOW IVP PRN (16:24)
[2019-03-19] MEDS ORDERED: Milk Of Magnesia 30 ML UDCUP PO PRN (16:24)
[2019-03-19] MEDS ORDERED: NS / Oxytocin 40 units/1000ml 1,000 ML IV SCH (16:24)
[2019-03-19] MEDS ORDERED: Bisacodyl 10 MG SUPP PR PRN (16:24)
[2019-03-19] MEDS ORDERED: Lanolin Ointment 7 GM TUBE TOP PRN (16:24)
[2019-03-19] MEDS ORDERED: Ibuprofen 100 MG/5 ML UDCUP PO SCH ×2 (17:00→22:00)
[2019-03-19] MEDS: Ferrous Sulfate 325 MG TAB PO SCH (17:56)
[2019-03-19] MEDS ORDERED: Sodium Chloride 0.9% 10 ML ONE (18:03)
[2019-03-19 18:04] LABS: Mean Corpuscular HGB CONC 33.7 g/dL (32.0-36.0); Mean Corpuscular Hemoglobin 25.1 pg (27.0-31.0); Mean Corpuscular Volume 74.6 fL (78.0-98.0); Mean Platelet Volume 8.6 fL (7.4-10.4); Platelet Count 163 thou/uL (130-400); RBC Distribution Width 13.8 % (11.5-14.5); Red Blood Cell (RBC) Count 3.97 mill/uL (4.20-5.40); White Blood Cell (WBC) Count 15.5 thou/uL (4.8-10.8)
[2019-03-19] MEDS ORDERED: HYDROcodone/Acetaminophen 5/325 mg Tablet PO ONE (18:18)
[2019-03-19] MEDS ORDERED: Acetaminophen 650 MG/20.3 ML UDCUP PO SCH (18:30)
[2019-03-19] MEDS: Docusate Calcium (SURFAK) 240 MG CAP PO SCH (19:11)
[2019-03-19] MEDS ORDERED: Benzocaine-Menthol 82.5 ML CAN TOP PRN (20:19)
[2019-03-19] MEDS ORDERED: Ibuprofen 800 MG TAB PO SCH (22:00)
[2019-03-20] MEDS ORDERED: Ibuprofen 800 MG TAB PO SCH ×2 (02:00→14:00)
[2019-03-20 06:10] LABS: Hemoglobin 8.5 g/dL (12.0-16.0)
[2019-03-20] MEDS ORDERED: Adacel (T-DAP) 0.5 ML SYRINGE IM ONE (09:00)
[2019-03-20] MEDS ORDERED: Prenatal Vitamin 1 TAB PO SCH (09:00)
[2019-03-20] MEDS ORDERED: Acetaminophen 650 MG/20.3 ML UDCUP PO PRN (09:33)
[2019-03-20] MEDS: Docusate Calcium (SURFAK) 240 MG CAP PO SCH (11:28)
--- NOTE | 2019-03-20 12:26 | PDOC.PP ---
Post Progress Note Post Day #: 1 Subjective: Pt reports doing well. Denies any acute events overnight. Reports lochia normal as period. Reports having some cramping pain. [place] any pain in vaginal area. Denies any fever or chills. Denies any chest pain or SOB. Reports swelling improved. PO intake tolerated: yes Flatus: yes Ambulation: yes Vital Signs (12 hours) Temp Pulse Resp BP Pulse Ox 03/20/19 09:55 96 03/20/19 08:29 97.6 F 102 H 14 134/78 96 03/20/19 05:13 98.4 F 98 115/67 Weight Weight 112.491 kg - Physical Examination General: NAD Cardiovascular: no m/r/g, RRR Respiratory: clear to auscultation bilaterally, non-labored breathing Abdominal: + bowel sounds, lochia (reports same as normal period), no distention , appropriately TTP Extremities: negative homans (B) Perineum: Intact. No sign of redness or drainage. Neurological: no gross focal deficits Psychiatric: A&Ox3, normal affect Result Diagrams: 03/20/19 05:44 03/19/19 15:45 Additional Labs: Post Labs Blood Type O POSITIVE 03/18/19 19:11 Hep Bs Antigen Non-Reactive S/CO (NonReactive) 03/18/19 19:11 (1) Elevated blood-pressure reading without diagnosis of hypertension Code(s): R03.0 - ELEVATED BLOOD-PRESSURE READING, W/O DIAGNOSIS OF HTN Status : Acute Comment: Mild range BP's and pt asymptomatic, have resolved Labwork normal -Monitor BP's closely (2) GDM (gestational diabetes mellitus), class A1 Code(s): O24.410 - GESTATIONAL DIABETES MELLITUS IN , DIET CONTROLLED Status: Acute (3) H/O section Code(s): Z98.891 - HISTORY OF UTERINE SCAR FROM PREVIOUS SURGERY Status: Acute (4) , delivered Code(s): O34.219 - MATERNAL CARE FOR UNSP TYPE SCAR FROM PREVIOUS DEL Status: Acute - Assessment/Plan 23 yo ->3 delievered JUSTIN M via @14:11 on 03/19/19. Pt had 2nd degree lac -Routine post care. now successful x2 -2nd degree lac intact. No sign of infection or bleeding -Pt reports minimal pain. Pain controlled with current regimen. -Possibly d/c later today. GDM A1 -blood glucose stable. Plan on repeat HgbA1c at 6 week pp visit Elevated BP w/o Dx of HTN -Pt had mild range elevated BP during labor. Pre-Labs drawn during that time were negative. Pt had some swelling in LE during delivery. Swelling has improved. -BP normal, not elevated at this time. Continue to trend. Obesity Addendum - Attending - Attending Attestation Date/Time: 03/20/19 1321 I personally evaluated the patient and discussed the management with Dr. Boyle I agree with the History, Examination, Assessment and Plan documented above with any addition or exceptions noted below - Patient denies any complaints. Ambulating/voiding. Afebrile VSS. 1) PPD#1 s/p (successful )- doing well ; plan to d/c home this afternoon.
[2019-03-20] MEDS ORDERED: Ibuprofen 100 MG/5 ML UDCUP PO SCH (14:00)
[2019-03-20] MEDS: Ferrous Sulfate 325 MG TAB PO SCH (15:14)
[2019-03-20 16:57] VITALS: BP 137/95; TEMP 98.4
--- NOTE | 2019-03-22 06:09 | PQF ---
[employer] Operator Crystal Reports Winform ViewerVILLALOSTEPHANIE RITTER AMELIE FENTON MD *r [id number] CLINICAL DOCUMENTATION CLARIFICATION FORM: POST DISCHARGE Addendum to original discharge summary date: ____ Late entry note date: __ DATE:03/22/2019 ATTN:AMELIE FENTON MD *r Please exercise your independent, professional judgment in responding to the clarification form. Clinical indicators are provided on the bottom of this form for your review Please check appropriate box(s): [ x ] Acute blood loss anemia [ ] Post-op anemia related to acute blood loss [ ] Chronic Anemia [x ] Other diagnosis __anemia of pregnancy [ ] Unable to determine In addition, please specify: Present on Admission (POA): [ x ] Yes - but worsened after delivery [ ] No [ ] Unable to determine For continuity of documentation, please document condition throughout progress notes and discharge summary. Thank You. CLINICAL INDICATORS - SIGNS / SYMPTOMS / LABS HGB 11.5 on 03/18 and 8.5 on 03/20 - Documented in Laboratory HCT 34.712/ and 25.2 on 03/20- Documented in Laboratory Pulse 104 on 03/19 and 101 on 03/20 - Documented in Vital Signs BP 118/56 on 03/19 - Documented in Vital Signs QBL 600 ml RISK FACTORS Spontaneous Vaginal Delivery Second degree laceration GDM class A1 TREATMENTS: Ferrous sulfate 300 mg - Medication report (This form is maintained as a part of the permanent medical record) 2014 [employer]. All Rights Reserved [email or web address] [not provided] [email or web address]
== END 2019-03-20 17:30 | disposition home or self-care (01) | DRG 807 ==
LOC: L&D 18:05 → 3SW 03-19 17:47
PROVIDERS: ADMIT Student in an Organized Health Care Education/Training Program; ATTEND Student in an Organized Health Care Education/Training Program
PROC: 10907ZC Drainage of Amniotic Fluid, Therapeutic from Products of Conception, Via Natural or Artificial Opening (ICD-10-PCS; principal; 2019-03-18)
PROC: 10E0XZZ Delivery of Products of Conception, External Approach (ICD-10-PCS; 2019-03-18)
PROC: 0KQM0ZZ Repair Perineum Muscle, Open Approach (ICD-10-PCS; 2019-03-18)
DX: O24.429 Gestational diabetes mellitus in childbirth, unspecified control (principal); Z37.0 Single live birth; O70.1 Second degree perineal laceration during delivery; O99.214 Obesity complicating childbirth; E66.9 Obesity, unspecified; Z3A.39 39 weeks gestation of pregnancy; O34.219 Maternal care for unspecified type scar from previous cesarean delivery; R03.0 Elevated blood-pressure reading, without diagnosis of hypertension; O99.02 Anemia complicating childbirth; D64.9 Anemia, unspecified
CPT/HCPCS: 36415; 36416; 51702; 80053; 82570; 82947; 84156; 85014; 85018; 85027; 86780; 86850; 86900; 86901; 87340; J2405; J2590

== ENCOUNTER 2024-05-09 13:35 | Emergency (ER) | payer MEDICAID, SELFPAY ==
[~2024-05-09 13:35] MED LIST: Iopamidol-370 76% 500 ML MDV (1 ML CHARGE) ONE
[2024-05-09] MEDS ORDERED: Fentanyl CADD 100 ML IV SCH (14:00)
[2024-05-09 14:03] LABS: #Basophils Less than 0.03 10x3/uL (0.0-0.2); #Eosinophils Less than 0.03 10x3/uL (0.0-0.7); %Basophils 0.3 % (0.0-1.0); %Eosinophils 0.1 % (0.0-10.0); %Lymphocytes 20.2 % (21.0-51.0); %Monocytes 0.8 % (0.0-10.0); %Neutrophils 78.3 % (42.0-75.0); Hematocrit 40.2 % (36.0-47.0); Hemoglobin 12.6 g/dL (12.0-16.0); Mean Corpuscular HGB CONC 31.3 g/dL (32.0-36.0); Mean Corpuscular Hemoglobin 23.7 pg (27.0-31.0); Mean Corpuscular Volume 75.7 fL (78.0-98.0); Mean Platelet Volume 9.9 fL (7.4-10.4); Platelet Count 230 10x3/uL (130-400); RBC Distribution Width 15.6 % (11.5-14.5); Red Blood Cell (RBC) Count 5.31 mill/uL (4.20-5.40)
[2024-05-09 14:21] LABS: ALT (SGPT) 9 U/L (Less than 34); AST (SGOT) 44 U/L (11-34); Albumin 3.1 g/dL (3.1-4.5); Alkaline Phosphatase 178 U/L (40-110); Anion Gap 21 mmol/L (10-20); BUN (Urea Nitrogen) 6 mg/dL (7.0-18.7); Bilirubin, Total 0.5 mg/dL (0.3-1.2); CK (CPK) 125 U/L (29-168); Calc. Creatinine Clearance 0 mL/min (70-130); Calcium 9.3 mg/dL (7.8-10.44); Carbon Dioxide 18 mmol/L (22-29); Chloride 101 mmol/L (98-107); Estimated GFR 125; Globulin 5.3 g/dL (2.4-3.5); Glucose 84 mg/dL (70-105); Potassium 5.2 mmol/L (3.5-5.1); Protein, Total 8.4 g/dL (6.0-8.3); Sodium 135 mmol/L (136-145)
[2024-05-09 14:41] LABS: Actual Bicarbonate (HCO3a) 20.3 mEq/L (22-28); Analyzer IN Cardio ER; Base Excess (BEa) -2.8 mEq/L (-2.0 to +3.0); CO2 Tension 29.6 mmHg (35.0-45.0); Carboxyhemoglobin (COHb) 0.3 gm% (0.0-3.0); Hematocrit-ABG 32 % (36.0-47.0); O2 Tension (PaO2), arterial 270.1 mmHg (80.0-100.0); Potassium - ABG Lab 2.97 mmol/L (3.70-5.30); pH, Arterial 7.453 (7.35-7.45)
[2024-05-09 14:44] LABS: Puncture Site Left Radial artery
[2024-05-09 14:45] LABS: INR-International Normal Ratio 1.1; PTT 22.9 sec (22.9-36.1); Prothrombin Time 13.7 sec (12.0-14.7)
[2024-05-09] MEDS ORDERED: metroNIDAZOLE 500 MG (100 mL) BAG ONE (14:48)
[2024-05-09] MEDS ORDERED: Azithromycin 500 MG VIAL ONE (14:57)
[2024-05-09 15:07] LABS: Amphetamine Not Detected (NotDetected); Barbiturates Screen Not Detected (NotDetected); Benzodiazepine Screen Not Detected (NotDetected); Cocaine Metabolite Screen Not Detected (NotDetected); Methadone Not Detected (NotDetected); Methamphetamine Not Detected (NotDetected); Opiate Screen Not Detected (NotDetected); Oxycodone Screen Not Detected (NotDetected); Phencyclidine (PCP) Not Detected (NotDetected); THC/Cannabinoid Screen Not Detected (NotDetected); Tricyclic Screen Not Detected (NotDetected)
[2024-05-09] MEDS ORDERED: Vancomycin (BATCH) 2.5 GM in Premix 1 BAG IVPB SCH (15:15)
[2024-05-09 15:19] LABS: Bilirubin Negative (Negative); Blood, Urine 1+ (Negative); CAUTI Indications for Culture Alt mental st,lethar; Glucose, Urine (Dipstick) 50 mg/dL (Negative); Ketone, Urine Negative (Negative); Leukocyte Negative Leu/uL (Negative); Nitrite Negative (Negative); Protein, Urine (Dipstick) 70 mg/dL (Neg-Trace); Specific Gravity, Urine 1.026 (1.002-1.036); Squamous Epithelial 0-3 HPF (0-3); Urobilinogen Normal mg/dL (Less than 2)
[2024-05-09 15:23] LABS: Lipase 19 U/L (8-78)
[2024-05-09 15:25] LABS: Bacteria/HPF 1+ HPF (None Seen)
[2024-05-09 15:25] LABS: Acetaminophen Less than 10 mcg/mL (Less than 10); Alcohol Less than 10.0 mg/dL (Less than 10); Salicylate Less than 8.0 mg/dL (Less than 8.0)
[2024-05-09 15:26] LABS: Clarity Hazy (Clear)
[2024-05-09 15:35] LABS: Urine Culture Reflex Yes Yes
[2024-05-09] MEDS ORDERED: Sodium Chloride 0.9% 100 ML ONE (15:54)
[2024-05-09] MEDS ORDERED: Cefepime 2 GM VIAL ONE (15:54)
[2024-05-09] MEDS ORDERED: Propofol 1,000 MG/100 ML VIAL IV ONE ×2 (16:02→17:50)
[2024-05-09] MEDS ORDERED: NOREPINEPHRINE 8 MG/250 ML-D5W 250 ML ONE (16:02)
[2024-05-09] MEDS ORDERED: Acetaminophen 650 MG Suppository ONE (16:57)
== END 2024-05-09 18:03 | disposition short-term general hospital (02) ==
LOC: ERS 13:35
DX: O86.4 Pyrexia of unknown origin following delivery (principal); O99.53 Diseases of the respiratory system complicating the puerperium; J96.90 Respiratory failure, unspecified, unspecified whether with hypoxia or hypercapnia
CPT/HCPCS: 31500; 36416; 36556; 36600; 51702; 70450; 71045; 71275; 74177; 80053; 80306; 80307; 81001; 82140; 82550; 82805; 83605; 83690; 83880; 84443; 84484; 85025; 85610; 85730; 87040; 87077; 87086; 87186; 87428; 93005; 94002; 96365; 96366; 96367; 96368; 99292; J0456; J0692; J2704; J3010; J3370; Q9967